=== PATIENT | female | born 1945 | race Caucasian/White ===

== ENCOUNTER 2021-09-09 11:28 | Emergency (ER) | payer OTHER ==
[~2021-09-09] VITALS: Ht 160 cm; Wt 45.4 kg
[2021-09-09 12:20] VITALS: BP_SYST 139
[2021-09-09] MEDS ORDERED: KETOROLAC TROMETHAMINE 30 MG VIAL IM ONE (12:30)
[2021-09-09] MEDS ORDERED: HYDROcodone/ACETAMIN 7.5-325 MG TAB PO ONE (12:30)
--- NOTE | 2021-09-09 13:34 | NUR ---
PT MEDICATED ORDERED, PT AMBULATING IN HALLWAY. INFORMED TO STAY IN BED, SAFETY MEASURES IN PLACE.
[2021-09-09] MEDS ORDERED: HYDR-3921 PO (13:44)
[2021-09-09] MEDS ORDERED: IBUP-1969 PO (13:44)
--- NOTE | 2021-09-09 14:49 | NUR ---
Patient given written and verbal discharge instructions and verbalizes understanding. ER MD discussed with patient the results and treatment provided. Patient in stable condition. ID arm band removed. Rx of NORCO, IBUPROFEN given. Patient educated on pain management and to follow up with PMD. Pain Scale . Opportunity for questions provided and answered. Medication side effect fact sheet provided.
[2021-09-09 14:59] VITALS: BP_SYST 133
== END 2021-09-09 14:59 | disposition home or self-care (01) ==
LOC: SED 11:28
DX: M48.56XA Collapsed vertebra, not elsewhere classified, lumbar region, initial encounter for fracture (principal); S33.5XXA Sprain of ligaments of lumbar spine, initial encounter; X50.9XXA Other and unspecified overexertion or strenuous movements or postures, initial encounter; Y93.89 Activity, other specified; Y92.89 Other specified places as the place of occurrence of the external cause; Y99.8 Other external cause status
CPT/HCPCS: 72100; 81002; 96372; 99283; J1885

== ENCOUNTER 2021-10-21 13:44 | Emergency (ER) | payer OTHER ==
[~2021-10-21] VITALS: Ht 160 cm; Wt 43.1 kg
[~2021-10-21 13:44] MED LIST: HYDR-3921 PO; IBUP-1969 PO
[2021-10-21 14:28] VITALS: BP_SYST 157
[2021-10-21] MEDS ORDERED: BACITRACIN 1 GM OINT TP ONE (17:15)
[2021-10-21] MEDS ORDERED: HYDROcodone/ACETAMIN 5-325 MG TAB (NORCO/ VICODIN) PO ONE (17:15)
[2021-10-21] MEDS ORDERED: LIDOCAINE/EPI 1% 1:100000 20 ML VIAL INJ ONE (17:15)
[2021-10-21 18:35] VITALS: BP_SYST 140
== END 2021-10-21 18:35 | disposition home or self-care (01) ==
LOC: SED 13:44
DX: S01.81XA Laceration without foreign body of other part of head, initial encounter (principal); Z79.899 Other long term (current) drug therapy; W18.39XA Other fall on same level, initial encounter; Y93.89 Activity, other specified; Y92.89 Other specified places as the place of occurrence of the external cause; Y99.8 Other external cause status
CPT/HCPCS: 99283